=== PATIENT | male | born 1960 | race Caucasian/White ===

== ENCOUNTER 2020-11-01 10:02 | Outpatient (CLI) | payer MEDICARE, MEDICAID, SELFPAY ==
--- NOTE | ~2020-11-01 | US_ITS ---
EXAMINATION:US venous doppler LE BI INDICATION:Generalized leg edema TECHNIQUE: Multiple grayscale, color flow and Doppler images of the right and left lower extremity de ep venous systems were obtained and reviewed. COMPARISON:Ultrasound dated 02/01/2017 FINDINGS: The common femoral, superficial femoral and popliteal veins demonstrate normal respiratory variation, augmentation and compressibility. Color flow is also seen within the posterior tibial, pe roneal, greater saphenous and profunda veins. IMPRESSION: 1: No lower extremity deep venous thrombosis. Reviewed, dictated and finalized at location A.
== END 2020-11-01 10:03 | disposition home or self-care (01) ==
PROVIDERS: PCP Family Medicine; Visit Provider Internal Medicine Nephrology
DX: R60.1 Generalized edema (principal)
CPT/HCPCS: 93970

== ENCOUNTER 2021-01-01 11:11 | Outpatient (CLI) | payer MEDICARE, MEDICAID, SELFPAY ==
--- NOTE | ~2021-01-01 | XR_ITS ---
XR shoulder RT min 2V DATE: 01/01/2021 11:40 INDICATION: Right shoulder and upper arm pain TECHNIQUE: 4 views COMPARISON: None FINDINGS: There is severe right glenohumeral joint space narrowing with [id number]. There is promin ent degenerative spurring at the glenohumeral joint. No fracture, dislocation, periosteal reaction or bone destruction or abnormal soft tissue calcificati on of the right shoulder is detected. IMPRESSION: Severe right glenohumeral osteoarthritis Reviewed, dictated and finalized at location B.
== END 2021-01-01 11:12 | disposition home or self-care (01) ==
LOC: ANHIMG 11:17
PROVIDERS: PCP Family Medicine; Visit Provider Nurse Practitioner
DX: M19.011 Primary osteoarthritis, right shoulder (principal)
CPT/HCPCS: 73030

== ENCOUNTER 2021-04-22 15:30 | Outpatient (RCR) | payer MEDICARE, MEDICAID, SELFPAY ==
--- NOTE | 2021-03-21 12:47 | PTOPEVAL ---
PHYSICAL THERAPY EVALUATION Thank you for referring Bradley Ma to [facility].? Zach was evaluated for the dx of right shoulder DJD/limited motion. The patient is scheduled to be seen for therapy?2 x/week for 4 weeks. Please review, sign, date and return this plan of care OLIVIA. I agree with and certify that the following plan of care is medically necessary. Referring Physician Date Attending Provider: Dominick Dennis MD *PT Outpatient Evaluation Start: 03/21/21 08:00 Freq: Status: Active Protocol: Document 03/21/21 08:00 [facility] (Rec: 03/21/21 08:37 [facility] [id number]) Therapy Assessment Status Assessment Status Assessment Status Evaluation Evaluation Information Problem Diagnosis right shoulder DJD Onset 2-3 months Cause no new injury Additional Evaluation Detail The patient has had pain in his shoulder for years off and on but per the [place] [facility] staff, the patient has not been using his right arm for about 2-3 months now. The patient is right hand dominant but holding his arm near his side and not using it to eat, per staff. The patient reports no trouble with sleeping and currently still working in an assembly and janitorial type job. The patient has modified work tasks to complete his job, by using mainly the left arm only. The patient is now having a little trouble with the left arm. Diagnostic Tests X-Rays For This Problem Yes: DJD right shoulder Pain Assessment Timing of Pain Assessment Timing of Pain Assessment Assessment Pain Scale Pain Scale Used Neely-Young (FACES) Neely-Young Neely-Young Pain Scale Moderate Pain Pain Score Pain Score Moderate Pain: Neely Young Additional Pain Score Comments 0 pain at rest, moderate with movement at right shoulder Interventions Used Interventions Used By Clinicians Medication,Position Change Upper Extremity Range of Motion General Upper Extremity Range of Motion Gross Upper Extremity Range of Motion right shoulder active: Comments extension 48', flexion 91', abduction 69', ER -20' from neutral, IR 71' left shoulder extension 67', fl
--- NOTE | 2021-04-17 15:29 | PCPTNOTE ---
Patient's warehouse order puller called & cancelled scheduled appointment this date.
--- NOTE | 2021-04-22 16:27 | PTOPEVAL ---
PHYSICAL THERAPY DISCHARGE NOTE Thank you for referring Bradley Ma to [facility].? Please review, sign, date and return this plan of care OLIVIA. I agree with and certify that the following plan of care is medically necessary. Referring Physician Date Attending Provider: Dominick Dennis MD Discharge Diagnosis right shoulder DJD Onset 2-3 months Cause no new injury Additional Evaluation Detail The patient has had pain in his shoulder for years off and on but per the residential staff, the patient has not been using his right arm for about 2-3 months now. The patient is right hand dominant but holding his arm near his side and not using it to eat, per staff. The patient reports no trouble with sleeping and currently still working in an assembly and janitorial type job. The patient has modified work tasks to complete his job , by using mainly the left arm only. The patient is now having a little trouble with the left arm. Subjective Information States that he his pain comes Query Text:As Reported By Patient/ and goes. custodial staff Family verifies that he does still hold his arm up in guard position. They also report that there does not seem to be a lot of change at this point . Some of this is due to comprehension and some of this is due to decreased ability to follow through on exercises . Pain Assessment Timing of Pain Assessment Timing of Pain Assessment Assessment Pain Scale Pain Scale Used Neely-Young (FACES) Neely-Young Neely-Young Pain Scale Mild Pain Pain Score Pain Score Mild Pain: Neely Young Additional Pain Score Comments . Interventions Used Interventions Used By Clinicians Electrical Stimulation, Exercise,Heat Upper Extremity Range of Motion General Upper Extremity Range of Motion Gross Upper Extremity Range of Motion right shoulder active: flexion Comments 91', abduction 80', ER 10' from neutral, IR: ALEJANDRO beckwith
== END 2021-04-23 13:27 | disposition home or self-care (01) ==
LOC: ANHPT 15:30
PROVIDERS: PCP Family Medicine; Visit Provider Orthopaedic Surgery
DX: M19.011 Primary osteoarthritis, right shoulder (principal)
CPT/HCPCS: 97014; 97110; 97162; G0283

== ENCOUNTER 2021-07-01 16:38 | Outpatient (CLI) | payer MEDICARE, MEDICAID, SELFPAY ==
--- NOTE | ~2021-07-01 | MR_ITS ---
EXAMINATION: MR shoulder RT wo con DATE: 07/01/2021 17:39 INDICATION: Osteoarthritis of the right shoulder TECHNIQUE: Magnetic resonance imaging (MRI) of the right shoulder was performed without intravenous c ontrast. Sequences included axial PD-weighted FS FSE, coronal oblique PD-weighted FS FSE, coronal obl ique T2-weighted FS FSE, sagittal PD-weighted FS FSE, and sagittal T1-weighted SE. COMPARISON: None. FINDINGS: Coracoacromial arch: The acromion undersurface is curved in morphology (type II). The coracoacromial ligament is normal. M oderate right acromioclavicular osteoarthritis. Rotator cuff: Mild supraspinatus tendinopathy without discrete tear. The infraspinatus, teres minor and subscapular is tendons are normal. Normal rotator cuff muscle bulk and signal. Biceps tendon, glenoid labrum and glenohumeral cartilage: Long head of the biceps tendon is normal. Advanced right glenohumeral osteoarthritis with extensive f ull thickness cartilage loss involving the caudal two thirds of the glenoid with remodeling with some loss of bone stock the posterior glenoid and with subarticular cystic changes underlying the posteri or glenoid as well as a small portion of the superomedial glenoid. Additional full/near full-thicknes s cartilage loss with subtle remodeling of the articular cortex at the superomedial aspect of the hum eral head also with a few small degenerative subarticular cystlike change. Large marginal osteophyte along the inferomedial humeral head which is seen articulating with the posterior inferior glenoid. T here is a tear of the anterosuperior to posterior inferior glenoid labrum. Likely chronic degeneratio n of the inferior labrum with minimal residual frayed labral tissue along the rim of the glenoid. Fluid: Very small glenohumeral joint effusion with proportional extension of a small amount of fluid extendi ng along the long head biceps tendon sheath. There is mild synovitis at the axillary recess. No loose osteochondral bodies. No abnormal increased fluid signal in the subacromial/subdeltoid bursa to sugg est bursitis. Bones: No fracture or pathologic marrow replacing process. IMPRESSION: 1. Advanced right glenohumeral osteoarthritis with remodeling of the posterior glenoid and extensive labral tear/degeneration. 2. Mild supraspinatus tendinopathy without discrete tear. 3. Moderate acromioclavicular osteoarthritis. Reviewed, dictated and finalized at location A.
== END 2021-07-01 16:39 | disposition home or self-care (01) ==
PROVIDERS: PCP Family Medicine
DX: M19.011 Primary osteoarthritis, right shoulder (principal)
CPT/HCPCS: 73221

== ENCOUNTER 2021-07-31 12:49 | Outpatient (CLI) | payer MEDICARE, MEDICAID, SELFPAY ==
--- NOTE | 2021-07-31 | ECG_ITS ---
Measurements Intervals [place] Rate: 85 P: 57 UT: 175 QRS: 58 QRSD: 97 T: 66 QT: 371 QTc: 443 Interpretive Statements SINUS RHYTHM COMPARED TO ECG 04/07/2019 08:23:18 NO SIGNIFICANT CHANGES Electronically Signed On 07-31-2021 20:55:31 CDT by Maxine Ac M.D.
== END 2021-07-31 12:50 | disposition home or self-care (01) ==
PROVIDERS: PCP Family Medicine
DX: Z01.810 Encounter for preprocedural cardiovascular examination (principal)
CPT/HCPCS: 93005

== ENCOUNTER 2022-08-29 11:49 | Emergency (ER) | payer MEDICARE, MEDICAID, SELFPAY ==
[2022-08-29 11:53] VITALS: BP 142/77; PULSE 97; RESP 18; TEMP 36.4; O2SAT 99
--- NOTE | 2022-08-29 13:34 | ED.GENADULT ---
HPI - General Adult General Chief complaint: Unspecified Stated complaint: gastric tube displacement Time Seen by Provider: 08/29/22 12:30 Source: patient and old records reviewed Mode of arrival: ambulatory Limitations: no limitations History of Present Illness HPI narrative: Patient is a 62-year-old male, past medical history of intellectual disability, who presents to the ED with home health care worker with report of suprapubic catheter displacement. Patient reports his catheter fell out this morning around 430 to 5:30 AM. He needs his catheter replaced. He denies any other concerns or issues. Denies fever, abdominal pain, back pain, nausea, vomiting, recent hematuria. Patient has seen Dr. Washington previously. Related Data Home Medications Medication Instructions Recorded Confirmed aspirin 81 mg tablet,delayed 81 mg PO DAILY 03/26/19 08/11/22 release (Aspir-Low) bupropion HCl 300 mg 24 hr tablet, 300 mg PO QAM 03/26/19 08/11/22 extended release calcium carbonate 500 mg calcium 03/26/19 08/11/22 (1,250 mg) chewable tablet (Calcium 500) cetirizine 10 mg tablet 10 mg PO DAILY 03/26/19 08/11/22 citalopram 20 mg tablet 20 mg PO DAILY 03/26/19 08/11/22 fluticasone 500 mcg-salmeterol 50 inhalation 03/26/19 08/11/22 mcg/dose blistr powdr for inhalation (Advair Diskus) cephalexin 250 mg capsule 250 mg PO DAILY 05/15/21 08/11/22 cholecalciferol (vitamin D3) 50 50 mcg PO DAILY 05/15/21 08/11/22 mcg (2,000 unit) capsule divalproex 250 mg tablet,delayed 250 mg PO ONCE 05/15/21 08/11/22 release (Depakote) mecobalamin (vitamin B12) 1,000 1,000 mcg PO DAILY 05/15/21 08/11/22 mcg chewable tablet prazosin 1 mg capsule 1 mg PO QHS 05/15/21 08/11/22 prazosin 2 mg capsule 2 mg PO DAILY 05/15/21 08/11/22 risperidone 1 mg tablet 1 mg PO BID 05/15/21 08/11/22 sertraline 100 mg tablet 100 mg PO DAILY 05/15/21 08/11/22 aluminum-mag hydroxide-simethicone 5 ml PO ONCE 06/26/21 08/11/22 200 mg-200 mg-20 mg/5 mL oral susp (Mintox) bisacodyl 5 mg tablet 5 mg PO QHS PRN constipation 06/26/21 08/11/22 bismuth subsalicylate 262 mg/15 mL 524 mg PO Q1H PRN 06/26/21 08/11/22 oral suspension guaifenesin 100 mg/5 mL oral 200 mg PO Q4H PRN 06/26/21 08/11/22 liquid (Robafen) allopurinol 200 mg PO DAILY 08/11/22 08/11/22 cranberry extract 500 mg capsule 500 mg PO DAILY 08/11/22 08/11/22 (Cranberry Concentrate) divalproex 125 mg tablet,delayed 125 mg PO QAM 08/11/22 08/11/22 release Allergies Allergy/AdvReac Type Severity Reaction Status Date / Time Sulfa (Sulfonamide Allergy Unknown UNKNOWN Verified 08/29/22 11:49 Antibiotics) Review of Systems Review of Systems: CONSTITUTIONAL: Denies fever, chills, or sweats. CARDIOVASCULAR: Denies chest pain. RESPIRATORY: Denies dyspnea. GASTROINTESTINAL: Denies abdominal pain, nausea, vomiting, or diarrhea. GENITOURINARY: See HPI. SKIN: Denies rash or itching. MUSCULOSKELETAL: Denies back pain. All systems reviewed & are unremarkable except as noted in HPI and below PMFSH Past Medical History Medical History Anxiety BPH (benign prostatic hyperplasia) CKD (chronic kidney disease) stage 3, GFR 30-59 ml/min Degenerative joint disease, shoulder, right Depression Diabetes mellitus Gout HLD (hyperlipidemia) HTN (hypertension) Intellectual disability Mild Migraine Pneumonia Seizures Stage 3 chronic kidney disease UTI (urinary tract infection) Surgical History Surgical History Chronic suprapubic catheter H/O umbilical hernia repair History of appendectomy History of tonsillectomy Social History Social History Smoking status: Former smoker Alcohol intake: never Substance use: never Lack of Transportation: No Lack of Food: Never True Current Housing: I Have Housing
--- NOTE | 2022-08-29 14:01 | PC.NURSE ---
Pt offered leg bag and large bag, however patient reports he does not wear a bag. Pt presented with with old catheter and old catheter had a cap on it. Pt reports he leaves his catheter in place at all times but uses the cap and just removes it to empty when needed. Cap placed on new catheter. Reviewed discharge instructions with pt who verbalized understanding and states will follow up with urology next week. Provider aware.
== END 2022-08-29 14:11 | disposition home or self-care (01) ==
PROVIDERS: Emergency Provider Physician Assistant; PCP Family Medicine
DX: T83.020A Displacement of cystostomy catheter, initial encounter (principal); F41.9 Anxiety disorder, unspecified; N40.0 Benign prostatic hyperplasia without lower urinary tract symptoms; I12.9 Hypertensive chronic kidney disease with stage 1 through stage 4 chronic kidney disease, or unspecified chronic kidney disease; E11.22 Type 2 diabetes mellitus with diabetic chronic kidney disease; N18.30 Chronic kidney disease, stage 3 unspecified; G40.909 Epilepsy, unspecified, not intractable, without status epilepticus; Z87.440 Personal history of urinary (tract) infections; F32.A Depression, unspecified; Y84.6 Urinary catheterization as the cause of abnormal reaction of the patient, or of later complication, without mention of misadventure at the time of the procedure; Y73.2 Prosthetic and other implants, materials and accessory gastroenterology and urology devices associated with adverse incidents
CPT/HCPCS: 99283

== ENCOUNTER 2022-08-30 22:26 | Emergency (ER) | payer MEDICARE, MEDICAID, SELFPAY ==
[2022-08-30 22:28] VITALS: BP 142/92; PULSE 91; RESP 18; TEMP 36.3; O2SAT 99
--- NOTE | 2022-08-30 23:23 | ED.GENADULT ---
HPI - General Adult General Chief complaint: Urogenital-Male Stated complaint: suprapubic catheter dislodged Time Seen by Provider: 08/30/22 22:50 History of Present Illness HPI narrative: 62-year-old male presented to the emergency department for evaluation after having his suprapubic Echeverria catheter dislodged. Patient recently had it exchanged but then it came out today. Caregiver states that she saw that it was out she replaced it. Patient denies any pain or complaints. Upon arrival to the ED the displaced Echeverria catheter has been replaced. Caregiver states that the balloon was deflated when it had been displaced the first time. Patient states he has had the indwelling suprapubic Echeverria catheter for all his life. Patient currently takes Cipro daily. Patient denies any pain or complaints. Related Data Home Medications Medication Instructions Recorded Confirmed aspirin 81 mg tablet,delayed 81 mg PO DAILY 03/26/19 08/11/22 release (Aspir-Low) bupropion HCl 300 mg 24 hr tablet, 300 mg PO QAM 03/26/19 08/11/22 extended release calcium carbonate 500 mg calcium 03/26/19 08/11/22 (1,250 mg) chewable tablet (Calcium 500) cetirizine 10 mg tablet 10 mg PO DAILY 03/26/19 08/11/22 citalopram 20 mg tablet 20 mg PO DAILY 03/26/19 08/11/22 fluticasone 500 mcg-salmeterol 50 inhalation 03/26/19 08/11/22 mcg/dose blistr powdr for inhalation (Advair Diskus) cephalexin 250 mg capsule 250 mg PO DAILY 05/15/21 08/11/22 cholecalciferol (vitamin D3) 50 50 mcg PO DAILY 05/15/21 08/11/22 mcg (2,000 unit) capsule divalproex 250 mg tablet,delayed 250 mg PO ONCE 05/15/21 08/11/22 release (Depakote) mecobalamin (vitamin B12) 1,000 1,000 mcg PO DAILY 05/15/21 08/11/22 mcg chewable tablet prazosin 1 mg capsule 1 mg PO QHS 05/15/21 08/11/22 prazosin 2 mg capsule 2 mg PO DAILY 05/15/21 08/11/22 risperidone 1 mg tablet 1 mg PO BID 05/15/21 08/11/22 sertraline 100 mg tablet 100 mg PO DAILY 05/15/21 08/11/22 aluminum-mag hydroxide-simethicone 5 ml PO ONCE 06/26/21 08/11/22 200 mg-200 mg-20 mg/5 mL oral susp (Mintox) bisacodyl 5 mg tablet 5 mg PO QHS PRN constipation 06/26/21 08/11/22 bismuth subsalicylate 262 mg/15 mL 524 mg PO Q1H PRN 06/26/21 08/11/22 oral suspension guaifenesin 100 mg/5 mL oral 200 mg PO Q4H PRN 06/26/21 08/11/22 liquid (Robafen) allopurinol 200 mg PO DAILY 08/11/22 08/11/22 cranberry extract 500 mg capsule 500 mg PO DAILY 08/11/22 08/11/22 (Cranberry Concentrate) divalproex 125 mg tablet,delayed 125 mg PO QAM 08/11/22 08/11/22 release Allergies Allergy/AdvReac Type Severity Reaction Status Date / Time Sulfa (Sulfonamide Allergy Unknown UNKNOWN Verified 08/29/22 11:49 Antibiotics) Review of Systems Review of Systems: All systems reviewed & are unremarkable except as noted in HPI and below PMFSH Past Medical History Medical History Anxiety BPH (benign prostatic hyperplasia) CKD (chronic kidney disease) stage 3, GFR 30-59 ml/min Degenerative joint disease, shoulder, right Depression Diabetes mellitus Gout HLD (hyperlipidemia) HTN (hypertension) Intellectual disability Mild Migraine Pneumonia Seizures Stage 3 chronic kidney disease UTI (urinary tract infection) Surgical History Surgical History Chronic suprapubic catheter H/O umbilical hernia repair History of appendectomy History of tonsillectomy Social History Social History Smoking status: Former smoker Alcohol intake: never Substance use: never Lack of Transportation: No Lack of Food: Never True Current Housing: I Have Housing Concerned About Future Housing: No Difficulty Paying Gas/Electric Bills: YES Difficulty Paying for Meds: No Currently Unemployed: No Education: Never Attended/Kindergarten Only Living arrang
--- NOTE | 2022-08-31 00:21 | PC.NURSE ---
This RN assisted EDP with insertion of suprapubic catheter. EDP was able to obtain urine specimen.
[2022-08-31 00:32] LABS: Appearance Urine Cloudy (Clear); Bacteria Urine None Seen /hpf; Bilirubin Urine Negative (Negative); Blood Urine 1+ (Negative); Color Urine Yellow (Yellow); Glucose Urine UA Negative (Negative); Ketones Urine Negative (Negative); Leukocyte Esterase Ur 3+ LEU/UL (Negative); Nitrate Urine Negative (Negative); Protein Urine 1+ mg/dL (Negative); Specific Grav Ur 1.012 (1.001-1.035); Squamous Epithelial Cell Urine None seen /hpf (Few); Urobilinogen Urine 0.2 mg/dL (<2.0); WBC Urine >100 /hpf; pH Urine 7.5 (5.0-9.0)
[2022-08-31 00:51] LABS: Add Urine Microscopic? YES
[2022-08-31] MEDS: CEPHALEXIN 250 MG CAPSULE PO (01:33)
== END 2022-08-31 01:36 | disposition home or self-care (01) ==
PROVIDERS: Emergency Provider Emergency Medicine; PCP Family Medicine
DX: T83.020A Displacement of cystostomy catheter, initial encounter (principal); N39.0 Urinary tract infection, site not specified; I12.9 Hypertensive chronic kidney disease with stage 1 through stage 4 chronic kidney disease, or unspecified chronic kidney disease; N18.30 Chronic kidney disease, stage 3 unspecified; E11.22 Type 2 diabetes mellitus with diabetic chronic kidney disease; N40.0 Benign prostatic hyperplasia without lower urinary tract symptoms; M19.011 Primary osteoarthritis, right shoulder; F41.9 Anxiety disorder, unspecified; F79 Unspecified intellectual disabilities; F32.A Depression, unspecified; E78.5 Hyperlipidemia, unspecified; Z87.01 Personal history of pneumonia (recurrent); Z87.891 Personal history of nicotine dependence; Y84.6 Urinary catheterization as the cause of abnormal reaction of the patient, or of later complication, without mention of misadventure at the time of the procedure
CPT/HCPCS: 51705; 81001; 87077; 87086; 87186; 99283; A9270

== ENCOUNTER 2024-04-24 16:17 | Emergency (ER) | payer MEDICARE, MEDICAID, SELFPAY ==
--- NOTE | ~2024-04-24 | XR_ITS ---
HISTORY: pt unable to move neck x 3 days ? etiology COMPARISON: None TECHNIQUE: 2 views of the cervical spine were performed FINDINGS: Visualization of the cervical spine to the superior endplate of T1. Straightening and slight reversal of the normal curvature of the cervical spine is identified. No prevertebral soft tissue swelling is appreciated. No acute compression fracture is noted. Air column within the trachea courses to the right of midline. The visualized portions of the bilateral upper lung mckeon are unremarkable. IMPRESSION: No acute compression fracture is identified. Straightening and slight reversal of the normal curvature of the cervical spine is present, likely mu scular in origin. Reviewed, dictated and finalized at location A. [employer]AL [employer]NER IMPRESSION: No acute compression fracture is identified. Straightening and slight reversal of the normal curvature of the cervical spine is present, likely muscular in origin.
[2024-04-24 16:26] VITALS: BP 138/76; PULSE 92; RESP 16; TEMP 36.4; O2SAT 98
--- NOTE | 2024-04-24 17:08 | ED.NECK ---
HPI - Neck Pain/Injury General Chief Complaint: Neck Pain/Injury Stated Complaint: Neck Pain Time Seen by Provider: 04/24/24 17:00 Source: patient, RN notes reviewed and other (residential facility paperwork) Mode of arrival: ambulatory Limitations: no limitations History of Present Illness HPI Narrative: Patient presents today from his residential care facility complaining of a 2 day history of posterior neck pain. Denies injury or trauma. Denies radiation of the pain. Denies numbness or tingling in the extremities. Pain increases in the neck with any movement. He has taken Tylenol with some mild intermittent relief. Currently rates his pain 01/12. Patient has history of mild intellectual disability, hypertension, chronic kidney disease, seizure disorder Related Data Home Medications ?Medication ?Instructions ?Recorded ?Confirmed ?Last Taken ?Type aspirin 81 mg tablet,delayed 81 mg PO DAILY 03/26/19 02/22/24 Unknown History release (Aspir-Low) bupropion HCl 300 mg 24 hr tablet, 300 mg PO QAM 03/26/19 02/22/24 Unknown History extended release cetirizine 10 mg tablet 10 mg PO DAILY 03/26/19 02/22/24 Unknown History cephalexin 250 mg capsule 250 mg PO DAILY 05/15/21 02/22/24 Unknown History cholecalciferol (vitamin D3) 50 50 mcg PO DAILY 05/15/21 08/26/23 Unknown History mcg (2,000 unit) capsule mecobalamin (vitamin B12) 1,000 1,000 mcg PO DAILY 05/15/21 08/26/23 Unknown History mcg chewable tablet sertraline 100 mg tablet 100 mg PO DAILY 05/15/21 02/22/24 Unknown History bisacodyl 5 mg tablet 5 mg PO QHS PRN constipation 06/26/21 02/22/24 Unknown History bismuth subsalicylate 262 mg/15 mL 524 mg PO Q1H PRN 06/26/21 02/22/24 Unknown History oral suspension allopurinol 200 mg PO DAILY 08/11/22 02/22/24 Unknown History cranberry extract 500 mg capsule 500 mg PO DAILY 08/11/22 02/22/24 Unknown History (Cranberry Concentrate) aluminum-mag hydroxide-simethicone 30 ml PO .PRN 08/24/23 02/22/24 Unknown History 200 mg-200 mg-20 mg/5 mL oral susp (Advanced Antacid-Antigas) calcium carbonate (Calcium 500) 500 mg PO TIDWMEAL 08/24/23 02/22/24 Unknown History diphenhydramine HCl 25 mg capsule 25 mg PO TID PRN 08/24/23 08/26/23 Unknown History (Banophen) mirabegron 25 mg tablet,extended 25 mg PO QAM 08/24/23 02/22/24 Unknown History release 24 hr (Myrbetriq) prazosin 1 mg capsule 1 mg PO QAM 08/24/23 02/22/24 Unknown History prazosin 2 mg capsule 2 mg PO QHS 08/24/23 02/22/24 Unknown History risperidone 1 mg tablet 1 mg PO QHS 08/24/23 02/22/24 Unknown History sertraline 50 mg tablet 50 mg PO DAILY 02/22/24 02/22/24 Unknown History Allergies Allergy/AdvReac Type Severity Reaction Status Date / Time Sulfa (Sulfonamide Allergy Unknown UNKNOWN Verified 02/22/24 10:34 Antibiotics) Review of Systems Review of Systems: CONSTITUTIONAL: Denies body aches, fever, chills, or sweats. EYES: Denies visual changes, redness, or discharge. ENT: Denies rhinorrhea, congestion, sore throat, or otalgia. CARDIOVASCULAR: Denies chest pain, palpitations, or edema. RESPIRATORY: Denies cough or dyspnea. GASTROINTESTINAL: Denies abdominal pain, nausea, vomiting, or diarrhea. GENITOURINARY: Denies dysuria or hematuria. SKIN: Denies rash, itching, or wounds. MUSCULOSKELETAL: + neck pain NEUROLOGIC: Denies headache, numbness, tingling, or weakness. PSYCH: Denies depression or anxiety. [facility] Past Medical History Medical History Stage 3 chronic kidney disease Degenerative joint disease, shoulder, right Intellectual disability Mild Anxiety Depression Diabetes mellitus Gout BPH (benign prostatic hyperplasia) UTI (urinary tract infection) CKD (chronic kidney disease) stage 3, GFR 30-59 ml/min Pneumonia HTN (hypertension) HLD (hyperlipidemia) Seizures Migraine Surgical History Surgical History Chronic suprapubic catheter History of appendectomy H/O umbilical hernia repair History of tonsillectomy Social History Social History Smoking status: Former smoker Alcohol intake: never Substance use: never Do You Feel Safe in your Home?: Yes Lack of Transportation: No Lack of Food: Never True Current Housing: I Have Housing Concerned About Future Housing: No Difficulty Paying Gas/Electric Bills: YES Difficulty Paying for Meds: No Currently Unemployed: No Education: Never Attended/Kindergarten Only Living arrangements: [facility] Gender identity (if verbalized by the patient): Male Comments At time of signature, I have reviewed and agree with nursing past medical, surgical, social and family history unless otherwise noted. Please see nursing chart for further information. There is no relevant family history pertinent to the presenting complaint Exam Narrative: GENERAL: Well-appearing, well-nourished, and in no acute distress. HEAD: Normocephalic, atraumatic. EYES: EOMI. No redness or drainage. Conjunctivae normal. ENT: Mucous membranes pink and moist. NECK: Upper cervical Tenderness midline and right paraspinal musculature. No step-off or crepitus noted. Patient's range of motion is significantly limited due to pain. He has his head in a a severely flexed position, almost chin to chest and does not want to move it. Distal sensation intact in bilateral hands. Hand can striper equal and strong. CHEST: No respiratory distress. EXTREMITIES: Normal range of motion. No edema. Movement of the bilateral arms does not affect neck pain. SKIN: Warm, dry, no rash. Capillary refill normal. Normal skin turgor. NEURO: No focal deficits. Alert and oriented x3. Gait steady. PSYCH: Normal affect. No signs of depression or anxiety. Course Course Level of Care: Express Care Visit Vital Signs Vital signs: Vital Signs Temperature 97.5 F L 04/24/24 16: Pulse Rate 92 04/24/24 16: Respiratory Rate 16 04/24/24 16: Blood Pressure 138/76 04/24/24 16: Pulse Oximetry 98 04/24/24 16:26 Oxygen Delivery Room Air 04/24/24 16:26 Temperature 97.5 F L 04/24/24 16:26 Pulse Rate 92 04/24/24 16:26 Respiratory Rate 16 04/24/24 16:26 Blood Pressure 138/76 04/24/24 16:26 Pulse Oximetry 98 04/24/24 16:26 Oxygen Delivery Room Air 04/24/24 16:26 Reviewed MDM - Neck Pain/Injury MDM Narrative Medical decision making narrative: X-ray shows straightening of the normal cervical curvature. Due to beers criteria, patient cannot be prescribed a muscle relaxer. Voltaren gel prescribed to help with patient's discomfort. Anticipatory guidance given. Differential Diagnosis Differential diagnosis: Likely disc disorder of cervical region, whiplash injury to neck, torticollis and strain of neck muscle Imaging Data Radiologist's impression: ITS Impressions Cervical Spine X-Ray 04/24/24 17:27 IMPRESSION: No acute compression fracture is identified. Straightening and slight reversal of the normal curvature of the cervical spine is present, likely muscular in origin. Critical Care Time Critical Care Time Critical Care Time: No Discharge Plan Discharge Clinical Impression: Cervical strain Qualifiers: Encounter type: initial encounter Qualified Code(s): S16.1XXA - Strain of muscle, fascia and tendon at neck level, initial encounter Patient Disposition: Home, Self-Care Condition: Stable Instructions: Cervical Strain (DC) Additional Instructions: Your neck x-ray shows some muscle spasms, but was otherwise negative. Continue Tylenol for pain if needed. Use the Voltaren gel as directed. Follow-up with your PCP in 4-5 days if symptoms are not improving. Your blood pressure was elevated above 120/80 today at Urgent Care. This puts you above the threshold for follow up. Please schedule a followup visit with your personal physician as soon as possible, for further evaluation and treatment. Even blood pressure exceeding 120/80 may indicate pre-hypertension. Patient Language: [place] Prescriptions: New diclofenac sodium [Voltaren Arthritis Pain] 1 % gel 2 g topical QID PRN (Reason: pain) Qty: 100 0RF No Action mirabegron [Myrbetriq] 25 mg tablet extended release 24 hr 25 mg PO QAM diphenhydramine HCl [Banophen] 25 mg capsule 25 mg PO TID PRN alum-mag hydroxide-simeth [Advanced Antacid-Antigas] 200-200-20 mg/5 mL suspension 30 ml PO .PRN Rx Instructions: administer between meals and at bedtime bismuth subsalicylate 262 mg/15 mL suspension 524 mg PO Q1H PRN Rx Instructions: do not exceed 8 doses in a 24 hour period bisacodyl 5 mg tablet 5 mg PO QHS PRN (Reason: constipation) cranberry extract [Cranberry Concentrate] 500 mg capsule 500 mg PO DAILY Rx Instructions: administer with meals sertraline 50 mg tablet 50 mg PO DAILY aspirin [Aspir-Low] 81 mg Tablet,Delayed Release (Dr/Ec) 81 mg PO DAILY bupropion HCl 300 mg Tablet Extended Release 24 Hr 300 mg PO QAM cetirizine 10 mg Tablet 10 mg PO DAILY allopurinol 200 mg PO DAILY calcium carbonate [Calcium 500] 500 mg calcium (1,250 mg) tablet,chewable 500 mg PO TIDWMEAL cephalexin 250 mg capsule 250 mg PO DAILY sertraline 100 mg tablet 100 mg PO DAILY mecobalamin (vitamin B12) 1,000 mcg tablet,chewable 1,000 mcg PO DAILY cholecalciferol (vitamin D3) 50 mcg (2,000 unit) capsule 50 mcg PO DAILY acetaminophen [Tylenol] 325 mg capsule 325 mg PO Q6H PRN (Reason: pain) Qty: 120 0RF prazosin 1 mg capsule 1 mg PO QAM prazosin 2 mg capsule 2 mg PO QHS risperidone 1 mg tablet 1 mg PO QHS Follow-up/Referrals: Divya,Catalina Mdoi MD [Primary Care Provider] - Time of Disposition: 17:51
== END 2024-04-24 17:58 | disposition home or self-care (01) ==
PROVIDERS: Emergency Provider Nurse Practitioner; PCP Family Medicine
DX: S16.1XXA Strain of muscle, fascia and tendon at neck level, initial encounter (principal); X58.XXXA Exposure to other specified factors, initial encounter; I12.9 Hypertensive chronic kidney disease with stage 1 through stage 4 chronic kidney disease, or unspecified chronic kidney disease; E11.22 Type 2 diabetes mellitus with diabetic chronic kidney disease; N18.30 Chronic kidney disease, stage 3 unspecified; M19.011 Primary osteoarthritis, right shoulder; M10.9 Gout, unspecified; E78.5 Hyperlipidemia, unspecified; F70 Mild intellectual disabilities; F41.9 Anxiety disorder, unspecified; F32.A Depression, unspecified; Z87.891 Personal history of nicotine dependence; Z79.82 Long term (current) use of aspirin
CPT/HCPCS: 72040; 99213; G0463

== ENCOUNTER 2025-03-08 16:23 | Emergency (ER) | payer MEDICARE, MEDICAID, SELFPAY ==
--- NOTE | ~2025-03-08 | CT_ITS ---
EXAMINATION: CT lumbar spine wo con COMPARISON: None HISTORY: L lower back pain TECHNIQUE: Axial images were obtained through the spine without IV contrast. Coronal, sagittal reconstruction images were obtained from the axial views. CT scan performed using dose optimization techniques including the following automated exposure control; adjustment of mA and/or kV; use of iterative reconstruction technique. Automatic exposure control was used to reduce radiation dose. Permanent radiation dose record is archived to PACS. FINDINGS: The vertebral heights are intact. No fracture or subluxation. Moderate loss of disc height at L2-3, L3-4 L4-5 and L5-S1 with moderate canal and foraminal stenosis. The soft tissues demonstrate a complex appearing right renal cyst which appears partially calcified measuring 2.6 x 2.7 cm incompletely evaluated, renal ultrasound is recommended. Impression: No acute abnormality. Reviewed, dictated and finalized at location P. E[employer]ION[employer] SKATEBO[employer] Impression: No acute abnormality.
[2025-03-08 16:38] VITALS: BP 145/96; PULSE 97; RESP 18; TEMP 36.7; O2SAT 97
--- NOTE | 2025-03-08 17:34 | ED.BACK ---
HPI - Back Pain/Injury General Chief Complaint: Back Pain/Injury Stated Complaint: back pain, near-syncope Time Seen by Provider: 03/08/25 17:18 History of Present Illness HPI Narrative: Patient is a 64 year old male who presents to the ER with left-sided back pain. He reports earlier today he was complaining, bent at the waist, and started experiencing pain afterwards. Patient lives [facility] and [facility] of his caregivers reports he was leaning to her left and he was walking. His caregiver report afterwards he also became pale and diaphoretic. At time of examination patient denies any pain to his back. His medical records indicate he has a history of a suprapubic catheter, chronic kidney disease and the urinary tract infections. Patient denies any saddle anesthesia, CVA tenderness, headache, or visual changes. Related Data Home Medications ?Medication ?Instructions ?Recorded ?Confirmed ?Last Taken ?Type aspirin 81 mg tablet,delayed 81 mg PO DAILY 03/26/19 12/05/24 Unknown History release (Aspir-Low) bupropion HCl 300 mg 24 hr tablet, 300 mg PO QAM 03/26/19 12/05/24 Unknown History extended release cetirizine 10 mg tablet 10 mg PO DAILY 03/26/19 12/05/24 Unknown History cephalexin 250 mg capsule 250 mg PO DAILY 05/15/21 12/05/24 Unknown History cholecalciferol (vitamin D3) 50 50 mcg PO DAILY 05/15/21 12/05/24 Unknown History mcg (2,000 unit) capsule mecobalamin (vitamin B12) 1,000 1,000 mcg PO DAILY 05/15/21 12/05/24 Unknown History mcg chewable tablet sertraline 100 mg tablet 100 mg PO DAILY 05/15/21 12/05/24 Unknown History bisacodyl 5 mg tablet 5 mg PO QHS PRN constipation 06/26/21 12/05/24 Unknown History bismuth subsalicylate 262 mg/15 mL 524 mg PO Q1H PRN 06/26/21 12/05/24 Unknown History oral suspension cranberry extract 500 mg capsule 500 mg PO DAILY 08/11/22 12/05/24 Unknown History (Cranberry Concentrate) aluminum-mag hydroxide-simethicone 30 ml PO .PRN 08/24/23 12/05/24 Unknown History 200 mg-200 mg-20 mg/5 mL oral susp (Advanced Antacid-Antigas) calcium carbonate (Calcium 500) 500 mg PO TIDWMEAL 08/24/23 12/05/24 Unknown History diphenhydramine HCl 25 mg capsule 25 mg PO TID PRN 08/24/23 12/05/24 Unknown History (Banophen) mirabegron 25 mg tablet,extended 25 mg PO QAM 08/24/23 12/05/24 Unknown History release 24 hr (Myrbetriq) prazosin 1 mg capsule 1 mg PO QAM 08/24/23 12/05/24 Unknown History prazosin 2 mg capsule 2 mg PO QHS 08/24/23 12/05/24 Unknown History risperidone 1 mg tablet 1 mg PO QHS 08/24/23 12/05/24 Unknown History sertraline 50 mg tablet 50 mg PO DAILY 02/22/24 12/05/24 Unknown History allopurinol 100 mg tablet 100 mg PO DAILY 12/05/24 12/05/24 Unknown History Allergies Allergy/AdvReac Type Severity Reaction Status Date / Time Sulfa (Sulfonamide Allergy Unknown UNKNOWN Verified 03/08/25 17:16 Antibiotics) [facility] Past Medical History Medical History Stage 3 chronic kidney disease Degenerative joint disease, shoulder, right Intellectual disability Mild Anxiety Depression Diabetes mellitus Gout BPH (benign prostatic hyperplasia) UTI (urinary tract infection) CKD (chronic kidney disease) stage 3, GFR 30-59 ml/min Pneumonia HTN (hypertension) HLD (hyperlipidemia) Seizures Migraine Surgical History Surgical History Chronic suprapubic catheter History of appendectomy H/O umbilical hernia repair History of tonsillectomy Social History Social History Smoking status: Former smoker Alcohol intake: never Substance use: never Lack of Transportation: No Lack of Food: Never True Current Housing: I Have Housing Concerned About Future Housing: No Difficulty Paying Gas/Electric Bills: YES Difficulty Paying for Meds: No Currently Unemployed: No Education: Never Attended/Kindergarten Only Living arrangements: [facility] Gender identity (if verbalized by the patient): Male Exam Narrative: GENERAL: Well appearing, well-nourished, non-toxic, in no acute distress. HEAD: Normocephalic, atraumatic. NECK: Supple. No adenopathy, no masses. RESPIRATORY: Airway patent, respirations nonlabored. Clear to auscultation bilaterally, no rales, rhonchi, wheezing. CARDIOVASCULAR: Regular rate and rhythm without murmurs, rubs, or gallops. Peripheral pulses 2+ and equal bilaterally. ABDOMINAL: Soft, nontender, nondistended, no hepatosplenomegaly. Normoactive BS. MUSCULOSKELETAL: Moves all extremities. Strength/ROM intact without gross deformities. SKIN: Warm, dry, normal color. No rashes. NEURO: A&O X3. Speech clear. Cranial nerves II-XII intact. (baseline low functioning) PSYCHIATRIC: Appropriate mood and affect. Normal interaction. Course Vital Signs Vital signs: Vital Signs Temperature 36.7 C 03/08/25 16:38 Pulse Rate 97 03/08/25 16:38 Respiratory Rate 18 03/08/25 16:38 Blood Pressure 145/96 H 03/08/25 16:38 Pulse Oximetry 97 03/08/25 16:38 Oxygen Delivery Room Air 03/08/25 16:38 Temperature 36.7 C 03/08/25 16:38 Pulse Rate 71 03/08/25 19:31 Respiratory Rate 15 03/08/25 19:31 Blood Pressure 136/78 03/08/25 19:31 Pulse Oximetry 100 03/08/25 19:31 Oxygen Delivery Room Air 03/08/25 16:38 MDM MDM Narrative Medical decision making narrative: Patient is a 64 year old male who presents to the ER with left-sided back pain. He reports earlier today he was complaining, bent at the waist, and started experiencing pain afterwards. Patient lives [facility] and 1 of his caregivers reports he was leaning to her left and he was walking. His caregiver report afterwards he also became pale and diaphoretic. At time of examination patient denies any pain to his back. His medical records indicate he has a history of a suprapubic catheter, chronic kidney disease and the urinary tract infections. Patient denies any saddle anesthesia, CVA tenderness, headache, or visual changes. Labs Ordered: UA Imaging Ordered: CT lumbar Medications Ordered: Results: Pt's CT scan indicates the vertebral heights are intact. No fracture or subluxation. Moderate loss of disc height at L2-3, L3-4 L4-5 and L5-S1 with moderate canal and foraminal stenosis. The soft tissues demonstrate a complex appearing right renal cyst which appears partially calcified measuring 2.6 x 2.7 cm incompletely evaluated, renal ultrasound is recommended. Diagnosis: Urinary tract infection, right renal cyst, lumbar strain Consults: Urology, outpatient, already established with Dr. Limon Patient Education/Shared MDM: Results of lab work and imaging shared with patient. He continues to denies a need for pain medication. Patient strongly advised to maintain hydration status upon discharge and follow-up with his PCP and Urology as soon as possible for further evaluation. He will be discharged home with a prescription for Levaquin, as patient has taken this antibiotics before, his last urine culture was susceptible to this antibiotic, and it has been three months since he was last on this antibiotics. Pt will also be discharged home with a prescription for lidocaine patches. Strict return precautions provided. Patient verbalized understanding and is in agreement with plan. Vital signs stable at time of discharge. All questions answered. Differential Diagnosis Differential Diagnosis: Lumbar radiculopathy, urinary tract infection, renal cyst Lab Data [facility] Lab Attestation statement: I personally reviewed the patient's lab results. Labs: Lab Results 03/08/25 Range/Units 18:38 Urine Color Yellow (Yellow) Urine Appearance Clear (Clear) Urine pH 6.0 (5.0-9.0) Ur Specific [employer] 1.007 (1.001-1.035) Urine Protein 1+ H (Negative) mg/dL Urine Glucose (UA) Negative (Negative) mg/dL Urine Ketones Negative (Negative) mg/dL Ur Blood (Man) Trace (Negative) Urine Nitrate Negative (Negative) Urine Bilirubin Negative (Negative) Urine Urobilinogen 0.2 (<2.0) mg/dL Leukocyte Esterase Rfl 2+ H (Negative) JOYCE/UL Urine RBC 0-2 (0-2) /hpf Urine WBC 51-100 H (0-3) /hpf Ur Squamous Epith Cells None seen (Few) /hpf Urine Bacteria 3+ H /hpf Urine Casts 0-2 Imaging Data Attestation: I personally reviewed and interpreted this imaging study as follows: Radiologist's impression: ITS Impressions Lumbar Spine CT 03/08/25 17:48 Impression: No acute abnormality. Discharge Plan Discharge Clinical Impression: Strain of lumbar region, Urinary tract infection, Renal cyst Patient Disposition: Home Condition: Stable Instructions: Antibiotic Form, Urinary Tract Infection in Men (ED), Lumbar Radiculopathy (ED) Additional Instructions: Please return to the ER with any worsening symptoms. Follow-up with primary care provider and urology as soon as possible for further evaluation and treatment. Take all medications as prescribed, including regularly scheduled medications. Complete your full dose of antibiotics. Please lidocaine patches on your back for acute pain. Patient Language: Danish Prescriptions: New levofloxacin 750 mg tablet 750 mg PO DAILY Qty: 7 0RF lidocaine 5 % adhesive patch,medicated 1 patch topical DAILY Qty: 30 0RF Rx Instructions: leave on most painful area for up to 12 hrs No Action diclofenac sodium [Voltaren Arthritis Pain] 1 % gel 2 g topical QID PRN (Reason: pain) Qty: 100 0RF mirabegron [Myrbetriq] 25 mg tablet extended release 24 hr 25 mg PO QAM diphenhydramine HCl [Banophen] 25 mg capsule 25 mg PO TID PRN alum-mag hydroxide-simeth [Advanced Antacid-Antigas] 200-200-20 mg/5 mL suspension 30 ml PO .PRN Rx Instructions: administer between meals and at bedtime allopurinol 100 mg tablet 100 mg PO DAILY bismuth subsalicylate 262 mg/15 mL suspension 524 mg PO Q1H PRN Rx Instructions: do not exceed 8 doses in a 24 hour period bisacodyl 5 mg tablet 5 mg PO QHS PRN (Reason: constipation) cranberry extract [Cranberry Concentrate] 500 mg capsule 500 mg PO DAILY Rx Instructions: administer with meals sertraline 50 mg tablet 50 mg PO DAILY aspirin [Aspir-Low] 81 mg Tablet,Delayed Release (Dr/Ec) 81 mg PO DAILY bupropion HCl 300 mg Tablet Extended Release 24 Hr 300 mg PO QAM cetirizine 10 mg Tablet 10 mg PO DAILY calcium carbonate [Calcium 500] 500 mg calcium (1,250 mg) tablet,chewable 500 mg PO TIDWMEAL cephalexin 250 mg capsule 250 mg PO DAILY sertraline 100 mg tablet 100 mg PO DAILY mecobalamin (vitamin B12) 1,000 mcg tablet,chewable 1,000 mcg PO DAILY cholecalciferol (vitamin D3) 50 mcg (2,000 unit) capsule 50 mcg PO DAILY acetaminophen [Tylenol] 325 mg capsule 325 mg PO Q6H PRN (Reason: pain) Qty: 120 0RF prazosin 1 mg capsule 1 mg PO QAM prazosin 2 mg capsule 2 mg PO QHS risperidone 1 mg tablet 1 mg PO QHS Follow-up/Referrals: Héctor Limon MD [Physician, Urology] Jam,Jihan Sigala NP [Primary Care Provider, Unknown] Time of Disposition: 19:16
[2025-03-08 18:48] LABS: Add Urine Microscopic? YES; Appearance Urine Clear (Clear); Glucose Urine UA Negative (Negative); Leukocyte Esterase Ur 2+ LEU/UL (Negative); Nitrate Urine Negative (Negative); Non Pathogenic Casts 0-2; Specific Grav Ur 1.007 (1.001-1.035)
[2025-03-08 19:31] VITALS: BP 136/78; PULSE 71; RESP 15; O2SAT 100
== END 2025-03-08 19:32 | disposition home or self-care (01) ==
PROVIDERS: Emergency Provider Registered Nurse; PCP Nurse Practitioner Family
DX: S39.012A Strain of muscle, fascia and tendon of lower back, initial encounter (principal); N39.0 Urinary tract infection, site not specified; N28.1 Cyst of kidney, acquired; I12.9 Hypertensive chronic kidney disease with stage 1 through stage 4 chronic kidney disease, or unspecified chronic kidney disease; E11.22 Type 2 diabetes mellitus with diabetic chronic kidney disease; N18.30 Chronic kidney disease, stage 3 unspecified; E78.5 Hyperlipidemia, unspecified; N40.0 Benign prostatic hyperplasia without lower urinary tract symptoms; F32.A Depression, unspecified; F79 Unspecified intellectual disabilities; Z96.0 Presence of urogenital implants; Z87.01 Personal history of pneumonia (recurrent); Z87.891 Personal history of nicotine dependence; Z79.82 Long term (current) use of aspirin; Z79.899 Other long term (current) drug therapy; X58.XXXA Exposure to other specified factors, initial encounter
CPT/HCPCS: 72131; 81001; 87077; 87086; 87186; 99284; A9270